=== PATIENT | female | born 2005 | race Two or more races ===

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

== ENCOUNTER 2024-06-23 20:12 | Emergency (ER) | payer OTHER ==
[~2024-06-23] VITALS: Ht 160 cm; Wt 49.0 kg
[2024-06-23 20:21] VITALS: BP 122/80; PULSE 84; RESP 16; O2SAT 98
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
[2024-06-23] MEDS: traMADol HCL 50 MG TAB PO ONE (20:31)
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
== END 2024-06-24 01:47 | disposition home or self-care (01) ==
LOC: EDBD 20:12 → ER 20:12
DX: S39.012A Strain of muscle, fascia and tendon of lower back, initial encounter (principal); V43.52XA Car driver injured in collision with other type car in traffic accident, initial encounter; Y93.I9 Activity, other involving external motion; Y92.488 Other paved roadways as the place of occurrence of the external cause; Y99.8 Other external cause status
CPT/HCPCS: 72100